=== PATIENT | female | born 1965 | race Caucasian/White ===

== ENCOUNTER 2022-04-25 07:17 | Outpatient (RCR) | payer BC, SELFPAY ==
--- OUTSIDE RECORDS SUMMARY | 2022-03-30 09:09 | XMS_ITS | Continuity of Care Document ---
:1965 Author Allergies, Adverse Reactions, Alerts No known allergies Social History Smoking Status Status Start Date End Date Date of Observat ion Smokes tobacco daily June 092018 (finding) 2:34pm Additional Data Assigned Sex Female Problems Active Problems Medical Problem Onset Date Status Blood Loss Anemia May 24, 2013 Active Chronic Blood Loss Anemia May 24, 2013 Active Acute appendicitis with generalized May 24, 2013 Acti ve peritonitis ileocecectomy May 24, 2013 Active Medications Medication Status Dose Units Route Directions Qty Days Start End Ins tructions Date Date Cholecalcifer Active 1000 UNIT PO Daily ol (Vitamin D3 Adult Gummies) 1,000 Unit CHW Cyanocobalami Active 100 MCG PO n (Vitamin B12) 100 Mcg TAB Ferrous Active 1 TAB PO Twice A Day 120 60 January Fumarate-Selene , min C 2021 (Vitron-C) 8:40am TAB Ibuprofen Active 400 MG PO Three Times 30 A Day as needed Multiple Active 1 EA PO Vitamin (Multivitamin s) TAB Acetaminophen Disconti 1-2 TAB PO Q4-6H Prn May mb /Hydrocodone nued , er Bitart 2012 10, (Hydrocodone- 4:06pm 2016 Acetaminophen 1:14pm ) 5 Mg/325 Mg TAB Acetaminophen Disconti 1 TABLET PO Q4-6H Prn March st FOR VICODIN /Hydrocodone nued , , 7.5/750 Bitart 2010 2012 (Vicodin 1:54pm 7:26pm 7.5/750) 7.5 Mg/750 Mg TAB Amoxicillin/C Disconti 1 TAB PO Twice A Day 16 May No vemb lavulanate nued , er Potassium 2012 10, (Amoxicillin 4:06pm 2016 & Pot 1:14pm Clavulanate) 875 Mg/125 Mg TAB Ferrous Disconti 324 MG OR Daily May Sulfate nued , , 2012 2021 10:53am 8:20am Iron Disconti May 10:53a m Omeprazole Disconti 20 MG PO Daily May, 2012, 10:53am 2016 1:14pm Immunizations Immunization Event Date Not Given Dose [place] Reason Number Number Informatio n Statement (VIS) Deta il COVID-19 Moderna January 27, 2020 COVID-19 Moderna February 24, 2020 Influenza July 26, 2009 Influenza August 01, 2 2011 Influenza July 20, 3 2012 Influenza July 22, 4 2016 Influenza July 23, 2017 Influenza July 28, 6 2018 Influenza August 01, 7 2019 Pneumovax Adult May 252012 Tdap June 07 (adolescent/adul 2016 t) Advance Directives Advance Directive Response Recorded Date/Time Does Pt have Health Care No May 19 3:17pm Directive? Insurance Providers Guarantor Robyn Elizondo Address [address] [facility] [address] Contact Info. Home Phone: CELL Payer Policy Id Coverage Id Subscriber's Subscriber Id Effective E xpiration Name Date Date [id number] Robyn Elizondo [place] [id number] Plan of Treatment Future Tests Future scheduled test information is unavailable Pending Tests Pending diagnostic test information is unavailable Future Visits Future appointment information is unavailable Referrals to Other Providers Reason for Referral Start Provider Provider Contact Provider Address Referral Date Information Charles Bojorquez Work Phone: [facility] PARRIS DIMAS [address] [place] [address] [facility] [phone] Future Procedures Future procedure information is unavailable Future Medications Future medication information is unavailable Patient Instructions Bone Marrow Biopsy (DC)
[2022-04-18 15:14] LABS: Basophils Percent Auto 2.4 % (0.0-3.0); Eosinophils Percent Auto 1.7 % (0.0-7.0); Hematocrit 27.7 % (33.0-51.0); Immature Granulocytes Abs Auto 0.14 K/uL (0.00-0.30); Lymphocytes Percent Auto 42.4 % (20-44); Mean Corpuscular HGB Conc 33 gm/dL (32-36); Mean Corpuscular Hemoglobin 34 pg (26-34); Mean Corpuscular Volume 103 fL (80-100); Monocytes Percent Auto 7.7 % (0.0-11.0); Neutrophils Percent Auto 42.4 % (42.0-72.0); Platelet Count* 266 K/uL (140-440); Red Blood Count 2.69 m/uL (4.00-5.20); White Blood Count* 4.15 K/uL (4.50-11.00)
[2022-04-18 15:28] LABS: Slide Review Reflex No
[2022-04-18 20:43] LABS: Iron* 81 ug/dL (37-170)
[2022-04-18 21:03] LABS: Free T4 Free Thyroxine* 1.04 ng/dL (0.70-1.85)
[2022-04-18 21:21] LABS: Ferritin* 62.8 ng/mL (11.1-264.0)
[2022-04-20 18:20] LABS: Total T3 114 ng/dL (80-200)
== END 2022-05-06 23:59 | disposition home or self-care (01) ==
LOC: CCIC 07:17
PROVIDERS: Visit Provider Internal Medicine Hematology & Oncology
DX: D46.9 Myelodysplastic syndrome, unspecified (principal)
CPT/HCPCS: 36415; 82728; 83540; 84439; 84443; 84480; 85025; 99212; 99214

== ENCOUNTER 2022-06-07 08:55 | Outpatient (RCR) | payer OTHER, BC, SELFPAY ==
--- NOTE | 2022-08-31 10:34 | ONC.NURNOTE ---
Yohana ABREU called from [facility]- Jessica Rodriguez's office requesting recent labs and MD note. Pt recently hospitalized and transferring care to [facility]. Labs and note faxed.
== END 2022-10-09 10:58 | disposition home or self-care (01) ==
PROVIDERS: Visit Provider Family Medicine
DX: S76.212A Strain of adductor muscle, fascia and tendon of left thigh, initial encounter (principal); Z51.89 Encounter for other specified aftercare
CPT/HCPCS: 97162